=== PATIENT | female | born 1945 | race Caucasian/White ===

== ENCOUNTER 2022-05-10 12:24 | Emergency (ER) | payer MEDICARE, OTHER ==
[~2022-05-10] VITALS: Ht 167.6 cm; Wt 95.3 kg
[2022-05-10 13:15] LABS: BASOPHILS % (AUTO) 0.2 % (0.0-5.0); EOSINOPHILS % (AUTO) 0.5 % (0.0-8.0); HEMATOCRIT 33.7 % (36-48); LYMPHOCYTES % (AUTO) 33.3 % (21.0-51.0); MEAN CORPUSCULAR HEMOGLOBIN 29.4 pg (27.0-33.0); MEAN CORPUSCULAR HGB CONC 34.4 g/dL (32.0-36.0); MEAN CORPUSCULAR VOLUME 85.5 fL (79-99); MONOCYTES % (AUTO) 12.7 % (3.0-13.0); NEUTROPHILS % (AUTO) 53.1 % (40.0-77.0); PLATELET COUNT (AUTO) 161 K/uL (130-400); RED BLOOD CELL COUNT(AUTO) 3.94 MIL/uL (4.00-5.50); RED CELL DISTRIBUTION WIDTH 12.4 % (11.0-15.5); WHITE BLOOD COUNT (AUTO) 4.3 K/uL (4.8-10.8)
[2022-05-10 13:26] LABS: INR 0.95 (0.85-1.15); PROTHROMBIN TIME 10.4 SEC (9.6-11.6)
[2022-05-10 13:27] LABS: CREATININE 1.5 mg/dL (0.5-1.5); POTASSIUM 4.4 mmol/L (3.5-5.1)
[2022-05-10 13:32] LABS: ALBUMIN 3.1 g/dL (3.5-5.0); TOTAL PROTEIN, SERUM 6.4 g/dL (6.0-8.3)
[2022-05-10] MEDS ORDERED: ONDANSETRON 4MG INJ IVP ONE (14:00)
[2022-05-10] MEDS ORDERED: 0.9%NACL 1000ML 1,000 ML IV ONE (14:00)
[2022-05-10] MEDS ORDERED: ONDA4TAB10 PO (15:38)
[2022-05-10 15:50] VITALS: BP 164/83
== END 2022-05-10 16:20 | disposition home or self-care (01) ==
LOC: EDH 12:24
DX: U07.1 COVID-19 (principal); S00.81XA Abrasion of other part of head, initial encounter; S00.31XA Abrasion of nose, initial encounter; R55 Syncope and collapse; E11.9 Type 2 diabetes mellitus without complications; I10 Essential (primary) hypertension; E78.00 Pure hypercholesterolemia, unspecified; W18.39XA Other fall on same level, initial encounter; Y93.01 Activity, walking, marching and hiking; Y92.091 Bathroom in other non-institutional residence as the place of occurrence of the external cause; Y99.8 Other external cause status
CPT/HCPCS: 99285; 84484; 80053; 85025; 85610; 87880; 87804 ×2; 36415; 87635; 71045; 96374; 96361; 93005; C9803; J7030; J2405